=== PATIENT | female | born 1985 | race Caucasian/White ===

== ENCOUNTER → 2017-01-14 | Outpatient (CLI) | payer MEDICAID ==
--- NOTE | 2017-01-14 14:29 | REP ---
OB ULTRASOUND: Real-time sonographic evaluation of the gravid uterus is performed. There is a single intrauterine gestation with the estimated gestational age 32 weeks 3 days with EDC 03/08/2017. Today's measurements indicate appropriate growth. Biometry and Growth: BPD 81 mm = 32 weeks 5 days, 54th percentile HC 293 mm = 32 weeks 3 days, 50th percentile AC 278 mm = 31 weeks 6 days, 42nd percentile FL 60 mm = 31 weeks 2 days, 34th percentile HC/AC ratio 1.06 within normal range. Estimated weight 1840 grams, 32nd percentile. SEEN/GROSSLY UNREMARKABLE Four-chamber heart Yes LVOT Yes RVOT Yes Stomach Yes Kidneys Yes Bladder Yes Cervical length: heart rate: 153 beats per minute. position: Vertex. Placenta: Anterior with no previa. Nuchal cord is suspected. Amniotic fluid: Appears mildly low. CHARLIE is 5.9, which is below normal range of 8.5 to 24.3. S/D ratio is 2.67 within normal range of 2.3 to 3.3. RI is 0.62 within normal range of 0.59 to 0.75. IMPRESSION: Appropriate growth. There appears to be mild oligohydramnios. Nuchal cord. Signed by Tito Queen MD 01/14/2017 04:15 P
== END ==
LOC: M SMT 12:53
PROVIDERS: ATTEND Obstetrics & Gynecology
DX: O26.843 Uterine size-date discrepancy, third trimester (principal)